=== PATIENT | male | born 1970 | race Two or more races ===

== ENCOUNTER 2021-08-23 07:44 | Outpatient (CLI) | payer OTHER | END 2021-08-23 07:50 | disposition home or self-care (01) | LOC: LAB 07:44 | PROVIDERS: ATTEND Internal Medicine | DX: E11.9 Type 2 diabetes mellitus without complications (principal); I10 Essential (primary) hypertension; E03.9 Hypothyroidism, unspecified; E78.2 Mixed hyperlipidemia; E55.9 Vitamin D deficiency, unspecified ==

== ENCOUNTER 2022-04-05 06:59 | Outpatient (CLI) | payer OTHER | END 2022-04-05 14:46 | disposition home or self-care (01) | LOC: LAB 06:59 | PROVIDERS: ATTEND Internal Medicine | DX: E11.9 Type 2 diabetes mellitus without complications (principal); I10 Essential (primary) hypertension; E03.9 Hypothyroidism, unspecified; E78.2 Mixed hyperlipidemia; E55.9 Vitamin D deficiency, unspecified; N40.0 Benign prostatic hyperplasia without lower urinary tract symptoms ==

== ENCOUNTER 2022-08-10 12:24 | Outpatient (CLI) | payer OTHER | END 2022-08-10 12:25 | disposition home or self-care (01) | LOC: LAB 12:24 | PROVIDERS: ATTEND General Practice | DX: U07.1 COVID-19 (principal); R50.9 Fever, unspecified; R05.8 Other specified cough; J11.1 Influenza due to unidentified influenza virus with other respiratory manifestations; J20.9 Acute bronchitis, unspecified; Z20.828 Contact with and (suspected) exposure to other viral communicable diseases; Z20.822 Contact with and (suspected) exposure to COVID-19 ==